=== PATIENT | female | born 1990 | race American Indian/Alaskan Native ===

== ENCOUNTER 2017-07-20 16:59 | Emergency (ER) | payer MEDICAID ==
[2017-07-20 17:14] VITALS: BP 109/48
--- NOTE | 2017-07-20 18:21 | Emergency Department Report ---
ED Laceration HPI - HPI Chief Complaint: Animal Bite Stated Complaint: INSECT BITES Time Seen by Provider: 07/20/17 17:52 Severity: moderate Tetanus Status: Up to Date Laceration Symptoms: Yes Pain, No Foreign Body Sensation, No Numbness, No Weakness Other History: Patient is a 26-year-old female with no prior medical history presents to ED complaining of some painful bumps on the left side of her face. Patient states she noticed this about 3 days ago. Patient states are very painful to the touch. Patient states she thinks she got bit but did not see anything bite her. Patient states she lives with her 61-year-old female in her kids and none of the children has it. She states all vaccinations are up-to- date. Patient states never had chickenpox. She denies fevers/chills/nausea/ vomiting or any other problems. ED Review of Systems ROS: Stated complaint: INSECT BITES Other details as noted in HPI Constitutional: denies: chills, fever Eyes: denies: eye pain, eye discharge, vision change ENT: denies: ear pain, throat pain Respiratory: denies: cough, shortness of breath, wheezing Cardiovascular: denies: chest pain, palpitations Endocrine: no symptoms reported Gastrointestinal: denies: abdominal pain, nausea, diarrhea Genitourinary: denies: urgency, dysuria, discharge Musculoskeletal: denies: back pain, joint swelling, arthralgia Skin: denies: rash, lesions Neurological: denies: headache, weakness, paresthesias Psychiatric: denies: anxiety, depression Hematological/Lymphatic: denies: easy bleeding, easy bruising ED Past Medical Hx - Past Medical History Previous Medical History?: No Additional medical history: HPV - Social History Smoking Status: Current Every Day Smoker Substance Use Type: None - Medications Home Medications: Home Medications Medication Instructions Recorded Confirmed Last Taken Type Acetaminophen [Acetaminophen TAB] 650 mg PO Q6HR PRN 04/23/14 04/23/14 04/21/14 History Pnv95/Ferrous Fumarate/FA 04/23/14 04/23/14 04/22/14 History [ Multivitamins Tablet] metroNIDAZOLE [Flagyl] 500 mg PO BID #14 tablet 04/23/14 Unknown Rx Laceration Physical Exam - Exam General: Vital signs noted. No distress. Alert and acting appropriately. ED Course Vital Signs 07/20/17 17:09 Temperature 98.3 F Pulse Rate 66 Respiratory 16 Rate Blood Pressure 109/48 O2 Sat by Pulse 98 Oximetry Critical care attestation.: If time is entered above; I have spent that time in minutes in the direct care of this critically ill patient, excluding procedure time. ED Disposition Condition: Stable Referrals: PRIMARY CARE, [Primary Care Provider] - 3-5 Days
--- NOTE | 2017-07-20 18:28 | Emergency Department Report ---
ED Rash HPI - HPI Chief Complaint: Animal Bite Stated Complaint: INSECT BITES Time Seen by Provider: 07/20/17 17:52 Location: Head, Neck, Other (ear) Suspected Cause: Unknown Rash Symptoms: Yes Itching, Yes Blistering, No Facial Swelling, No Tongue/Oral Swelling, No Breathing Difficulties, No Choking Sensation, No Wheezing/Dyspnea, No Peeling, No Fever, No Lightheaded, No Malaise, No Myalgias Severity: moderate Other History: Patient is a 26-year-old female with no prior medical history presents to ED complaining of some painful bumps on the left side of her face. Patient states she noticed this about 3 days ago. Patient states are very painful to the touch. Patient states she thinks she got bit but did not see anything bite her. Patient states she lives with her 61-year-old female in her kids and none of the children has it. She states all vaccinations are up-to- date. Patient states never had chickenpox. She denies fevers/chills/nausea/ vomiting or any other problems. ED Review of Systems ROS: Stated complaint: INSECT BITES Other details as noted in HPI Constitutional: denies: chills, fever Eyes: denies: eye pain, eye discharge, vision change ENT: denies: ear pain, throat pain Respiratory: denies: cough, shortness of breath, wheezing Cardiovascular: denies: chest pain, palpitations Endocrine: no symptoms reported Gastrointestinal: denies: abdominal pain, nausea, diarrhea Genitourinary: denies: urgency, dysuria, discharge Musculoskeletal: denies: back pain, joint swelling, arthralgia Skin: denies: rash, lesions Neurological: denies: headache, weakness, paresthesias Psychiatric: denies: anxiety, depression Hematological/Lymphatic: denies: easy bleeding, easy bruising ED Past Medical Hx - Past Medical History Previous Medical History?: No Additional medical history: HPV - Social History Smoking Status: Current Every Day Smoker Substance Use Type: None - Medications Home Medications: Home Medications Medication Instructions Recorded Confirmed Last Taken Type Acetaminophen [Acetaminophen TAB] 650 mg PO Q6HR PRN 04/23/14 04/23/14 04/21/14 History Pnv95/Ferrous Fumarate/FA 04/23/14 04/23/14 04/22/14 History [ Multivitamins Tablet] metroNIDAZOLE [Flagyl] 500 mg PO BID #14 tablet 04/23/14 Unknown Rx Acyclovir [Zovirax Tab] 800 mg PO Q12H #14 tab 07/20/17 Unknown Rx Acyclovir/Hydrocortisone [Xerese 1 applicatio TP 5XD #1 tube 07/20/17 Unknown Rx 5%-1% Cream] Ibuprofen [Motrin] 800 mg PO Q8HR PRN #40 tablet 07/20/17 Unknown Rx Rash Exam - Exam General: Vital signs noted. No distress. Alert and acting appropriately. HEENT: No Periorbital Edema, No Conjuctival Injection, No Chemosis, No Perioral Edema, No Tongue Edema, No Uvular Edema, No Compromised Airway, No Drooling Lungs: Yes Good Air Exchange (Normal Breath Sounds), No Wheezes, No Ronchi, No Stridor, No Cough, No Labored Respirations, No Retractions, No Use of Accessory Muscles, No Other Abnormal Lung Sounds Heart: Yes Regular, No Murmur Skin: Yes Bulla(e), Yes Tenderness, Yes Erythema, Yes Other (multiple rays grouped erythematous painful lesions along the dermatome on the left cheek and neck), No Urticarial Rash, No Maculopapular Rash, No Morbilliform rash, No Excoriations, No Weeping, No Edema, No Encrustations Other: Positive: Abdomen Normal, Neurologic Normal, Musculoskeletal Normal ED Course Vital Signs 07/20/17 17:09 Temperature 98.3 F Pulse Rate 66 Respiratory 16 Rate Blood Pressure 109/48 O2 Sat by Pulse 98 Oximetry ED Medical Decision Making - Medical Decision Making 26-year-old female presents with herpes zoster dermatitis. Discussed the patient notices contentious and most likely was injected by contacts. I discussed the patient to take medication as prescribed. I discussed the patient in lesions would resolve after about a week or so. I discussed with patient to follow up with primary care physician. Patient understands instructions given. Critical care attestation.: If time is entered above; I have spent that time in minutes in the direct care of this critically ill patient, excluding procedure time. ED Disposition Clinical Impression: Herpes zoster dermatitis Disposition: DC-01 TO HOME OR SELFCARE Is pt being admited?: No Does the pt Need Aspirin: No Condition: Stable Instructions: Herpes Zoster (ED) Additional Instructions: Make sure to follow up with the primary care physician as discussed. Take all your medications as you've been prescribed. If you have any worsening symptoms or develop new symptoms please return to ED immediately. Prescriptions: Acyclovir [Zovirax Tab] 800 mg PO Q12H #14 tab Acyclovir/Hydrocortisone [Xerese 5%-1% Cream] 1 applicatio TP 5XD #1 tube Ibuprofen [Motrin] 800 mg PO Q8HR PRN #40 tablet PRN Reason: Pain Referrals: PRIMARY CARE, [Primary Care Provider] - 3-5 Days [facility] [Outside] - 3-5 Days [facility] [Outside] - 3-5 Days [facility] [address] [Outside] - 3-5 Days Forms: Work/School Release Form(ED) Time of Disposition: 18:30
[2017-07-20] MEDS ORDERED: MOTRIN PO ONE (18:31)
[2017-07-20] MEDS ORDERED: ZOVIRAX PO ONE (19:00)
== END 2017-07-20 18:54 | disposition home or self-care (01) ==
LOC: ED 16:59
DX: B02.8 Zoster with other complications (principal); F17.200 Nicotine dependence, unspecified, uncomplicated; L30.8 Other specified dermatitis
CPT/HCPCS: 99282